=== PATIENT | male | born 1960 | race Caucasian/White ===

== ENCOUNTER 2017-09-21 09:43 | Outpatient (CLI) | payer OTHER | END 2017-09-21 09:54 | disposition home or self-care (01) | LOC: TOM 09:43 | DX: Z85.038 Personal history of other malignant neoplasm of large intestine (principal); D12.5 Benign neoplasm of sigmoid colon; R71.0 Precipitous drop in hematocrit ==

== ENCOUNTER 2018-12-28 14:41 | Outpatient (CLI) | payer OTHER | END 2018-12-28 16:06 | disposition home or self-care (01) | LOC: SONOGRAMA 14:41 | DX: N40.0 Benign prostatic hyperplasia without lower urinary tract symptoms (principal); R31.21 Asymptomatic microscopic hematuria ==

== ENCOUNTER 2019-01-02 09:42 | Outpatient (CLI) | payer OTHER | END 2019-01-02 09:58 | disposition home or self-care (01) | LOC: NUCLEAR 09:42 | DX: I87.2 Venous insufficiency (chronic) (peripheral) (principal) ==

== ENCOUNTER 2020-08-16 09:58 | Outpatient (CLI) | payer OTHER | END 2020-08-16 10:08 | disposition home or self-care (01) | LOC: LAB 09:58 | PROVIDERS: ATTEND Radiology Diagnostic Radiology | DX: Z85.038 Personal history of other malignant neoplasm of large intestine (principal) ==

== ENCOUNTER 2020-08-23 07:32 | Outpatient (CLI) | payer OTHER | END 2020-08-23 07:49 | disposition home or self-care (01) | LOC: SONOGRAMA 07:32 | PROVIDERS: ATTEND Internal Medicine Gastroenterology | DX: Z85.038 Personal history of other malignant neoplasm of large intestine (principal); R97.20 Elevated prostate specific antigen [PSA]; R71.0 Precipitous drop in hematocrit; K59.00 Constipation, unspecified ==

== ENCOUNTER → 2022-03-16 | Outpatient (CLI) | payer OTHER | END | disposition home or self-care (01) | LOC: TOM 08:37 | PROVIDERS: ATTEND Internal Medicine Gastroenterology | DX: Z85.038 Personal history of other malignant neoplasm of large intestine (principal); K63.89 Other specified diseases of intestine ==

== ENCOUNTER 2022-04-10 10:27 | Outpatient (CLI) | payer OTHER | END 2022-04-10 10:30 | disposition home or self-care (01) | LOC: LAB 10:27 | PROVIDERS: ATTEND Radiology Diagnostic Radiology | DX: C18.6 Malignant neoplasm of descending colon (principal) ==

== ENCOUNTER 2022-04-13 07:04 | Outpatient (CLI) | payer OTHER | END 2022-04-13 07:24 | disposition home or self-care (01) | LOC: TOM 07:04 | PROVIDERS: ATTEND Surgery | DX: C18.6 Malignant neoplasm of descending colon (principal); C18.2 Malignant neoplasm of ascending colon; Z85.038 Personal history of other malignant neoplasm of large intestine ==

== ENCOUNTER 2022-04-27 10:31 | Outpatient (CLI) | payer OTHER ==
[2022-04-28] MEDS ORDERED: VASOTEC20 M1 PO (08:49)
[2022-04-28] MEDS ORDERED: DULOXE PO (08:49)
[2022-04-28] MEDS ORDERED: UROXATRAL10 MG PO (08:50)
== END 2022-04-27 10:32 | disposition home or self-care (01) ==
LOC: LAB 10:31
PROVIDERS: ATTEND Internal Medicine Geriatric Medicine
DX: D64.9 Anemia, unspecified (principal)

== ENCOUNTER 2022-04-28 08:15 | Inpatient (IN) | payer OTHER ==
[~2022-04-28] VITALS: Ht 170.2 cm; Wt 127.0 kg
[2022-04-28] MEDS ORDERED: DULOXE PO (08:49)
[2022-04-28] MEDS ORDERED: VASOTEC20 M1 PO (08:49)
[2022-04-28] MEDS ORDERED: UROXATRAL10 MG PO (08:50)
[2022-05-05] MEDS ORDERED: DULOXETINE HCL20 MG PO (13:15)
[2022-05-11] MEDS ORDERED: PERCOCET 5-3251 EACH PO (12:09)
[2022-05-11] MEDS ORDERED: INTESTINEX680 M1 PO (12:10)
[2022-05-11] MEDS ORDERED: PEPCID AC20 MG PO (12:11)
== END 2022-05-11 13:27 | disposition home or self-care (01) | DRG 331 ==
LOC: O/R 05-04 08:14 → SURG 05-04 08:14 → SURH 05-04 08:15 → SURG 05-05 16:44
PROVIDERS: ADMIT Surgery; ATTEND Surgery
PROC: 0DTG4ZZ Resection of Left Large Intestine, Percutaneous Endoscopic Approach (ICD-10-PCS; principal; 2022-05-04 12:45)
PROC: 4A12X4Z Monitoring of Cardiac Electrical Activity, External Approach (ICD-10-PCS; 2022-05-05)
DX: C18.6 Malignant neoplasm of descending colon (principal); R59.0 Localized enlarged lymph nodes; E11.65 Type 2 diabetes mellitus with hyperglycemia; G47.30 Sleep apnea, unspecified; I10 Essential (primary) hypertension; Z79.4 Long term (current) use of insulin; Z85.038 Personal history of other malignant neoplasm of large intestine

== ENCOUNTER 2022-05-26 09:59 | Outpatient (CLI) | payer OTHER ==
[~2022-05-26 09:59] MED LIST: DULOXE PO; DULOXETINE HCL20 MG PO; INTESTINEX680 M1 PO; PEPCID AC20 MG PO; PERCOCET 5-3251 EACH PO; UROXATRAL10 MG PO; VASOTEC20 M1 PO
[2022-05-26] MEDS ORDERED: NIFEDIPINE20 MG PO (10:59)
[2022-05-26] MEDS ORDERED: JANUMET 50-5001 EACH PO (10:59)
== END 2022-05-26 10:00 | disposition home or self-care (01) ==
LOC: LAB 09:59
PROVIDERS: ATTEND Internal Medicine Hematology & Oncology
DX: C18.6 Malignant neoplasm of descending colon (principal)

== ENCOUNTER 2022-05-28 05:49 | Day surgery (SDC) | payer OTHER ==
[~2022-05-28 05:49] MED LIST changes: +JANUMET 50-5001 EACH PO; +NIFEDIPINE20 MG PO
[2022-05-28] MEDS ORDERED: TRAM1TAB98 PO ×2 (12:48→13:11)
== END 2022-05-28 16:00 | disposition home or self-care (01) ==
LOC: CIR.AMB 05:49
PROVIDERS: ATTEND Surgery
DX: C18.6 Malignant neoplasm of descending colon (principal); Z20.822 Contact with and (suspected) exposure to COVID-19; Z88.6 Allergy status to analgesic agent; I10 Essential (primary) hypertension; Z86.16 Personal history of COVID-19; F17.210 Nicotine dependence, cigarettes, uncomplicated

== ENCOUNTER 2022-10-28 09:39 | Outpatient (CLI) | payer OTHER ==
[~2022-10-28 09:39] MED LIST changes: +TRAM1TAB98 PO
== END 2022-10-28 09:41 | disposition home or self-care (01) ==
LOC: LAB 09:39
PROVIDERS: ATTEND Internal Medicine Hematology & Oncology
DX: D50.0 Iron deficiency anemia secondary to blood loss (chronic) (principal); D63.8 Anemia in other chronic diseases classified elsewhere; D63.0 Anemia in neoplastic disease; D50.8 Other iron deficiency anemias

== ENCOUNTER 2022-11-06 19:43 | Emergency (ER) | payer OTHER ==
[~2022-11-06] VITALS: Ht 170.2 cm; Wt 117.9 kg
== END 2022-11-06 21:09 | disposition home or self-care (01) ==
LOC: ER 19:43
DX: R73.9 Hyperglycemia, unspecified (principal); Z88.6 Allergy status to analgesic agent

== ENCOUNTER → 2023-02-03 | Outpatient (CLI) | payer OTHER | END | disposition home or self-care (01) | LOC: NUCLEAR 08:00 | PROVIDERS: ATTEND Internal Medicine Hematology & Oncology | DX: C18.6 Malignant neoplasm of descending colon (principal) ==

== ENCOUNTER 2023-10-25 07:55 | Emergency (ER) | payer OTHER ==
[~2023-10-25] VITALS: Ht 170.2 cm; Wt 123.8 kg
[2023-10-25] MEDS ORDERED: UROXATRAL10 MG (08:05)
[2023-10-25] MEDS ORDERED: TOUJEO SOL300 UNIT/1 SQ (08:05)
[2023-10-25] MEDS ORDERED: GLIPIZIDE XL5 MG (08:05)
[2023-10-25] MEDS ORDERED: HYDROCHLOROTH12.5 M2 PO (08:06)
[2023-10-25] MEDS ORDERED: DILTIAZEM ER300 M2 (08:06)
[2023-10-25] MEDS ORDERED: FLONASE16 GM NS (08:06)
[2023-10-25] MEDS ORDERED: LEVOTHYROXINE25 MCG PO (08:07)
[2023-10-25] MEDS ORDERED: CRESTOR10 MG PO (08:07)
[2023-10-25] MEDS ORDERED: 0.9 % SODIUM CHLORIDE 1,000 ML IV SCH (08:45)
[2023-10-25] MEDS ORDERED: MEPERIDINE HCL/PF 50 MG/ML VIAL IM ONE (08:45)
[2023-10-25 10:30] LABS: HEMATOCRIT 40.3 % (39.0-48.0); HEMOGLOBIN 14.3 g/dL (13-16.00); MEAN CELL VOLUME 86.5 fL (80.0-100.00); MEAN CORPUSCULAR HEMOGLOBIN 30.7 pg (27.00-32.0); MEAN CORPUSCULAR HGB CONC 35.5 g/dl (32.0-36.0); PLATELET COUNT 259 K/uL (150-450); RED BLOOD COUNT 4.66 M/uL (4.00-6.00); RED CELL DISTRIBUTION WIDTH 13.3 % (11.5-14.5)
[2023-10-25 10:39] LABS: CALCIUM 9.5 mg/dL (8.5-10.1); CREATININE SERUM 0.99 mg/dL (0.70-1.30); GFR 76.85; POTASSIUM 3.62 mEq/L (3.5-5.1)
[2023-10-25] MEDS ORDERED: MEPERIDINE HCL 25 MG/ML AMPUL IV ONE (12:00)
[2023-10-25 12:28] LABS: PH,URINE 7.5 (5.0-8.0); URINE APPEARANCE Clear; URINE BILIRRUBIN Negative (NEGATIVE); URINE BLOOD Small; URINE COLOR Yellow; URINE GLUCOSE Negative (NEGATIVE); URINE LEUKOCYTE Trace; URINE NITRATE Negative; URINE PROTEIN 30 (NEGATIVE)
[2023-10-25 12:32] LABS: URINE BACTERIA 12.5 uL (0.0-1933); URINE EPITHELIAL CELLS 5.2 uL (0.0-38.8); URINE RBC 210.2 uL (0.0-20.8); URINE WBC 26.1 uL (0.0-23.2)
== END 2023-10-25 14:17 | disposition home or self-care (01) ==
LOC: ER 07:56
PROVIDERS: Emergency Medicine
DX: R10.9 Unspecified abdominal pain (principal); I10 Essential (primary) hypertension; E03.8 Other specified hypothyroidism; E11.9 Type 2 diabetes mellitus without complications; Z79.4 Long term (current) use of insulin; Z88.6 Allergy status to analgesic agent

== ENCOUNTER 2024-06-26 22:34 | Emergency (ER) | payer OTHER ==
[~2024-06-26] VITALS: Ht 170.2 cm; Wt 129.7 kg
[~2024-06-26 22:34] MED LIST changes: +CRESTOR10 MG PO; +DILTIAZEM ER300 M2; +FLONASE16 GM NS; +GLIPIZIDE XL5 MG; +HYDROCHLOROTH12.5 M2 PO; +LEVOTHYROXINE25 MCG PO; +TOUJEO SOL300 UNIT/1 SQ; +UROXATRAL10 MG
[2024-06-26] MEDS ORDERED: FAMOTIDINE/PF 20 MG in 0.9 % SODIUM CHLORIDE 8 ML IV PUSH STA (23:10)
[2024-06-26] MEDS ORDERED: HYOSCYAMINE SULFATE 0.125 MG TAB.SUBL SL ONE (23:15)
[2024-06-26] MEDS ORDERED: ONDANSETRON HCL 2 MG/ML VIAL IV ONE (23:15)
[2024-06-26] MEDS ORDERED: 0.9 % SODIUM CHLORIDE 1,000 ML IV SCH (23:15)
[2024-06-27 00:11] LABS: HEMATOCRIT 46.9 % (39.0-48.0); HEMOGLOBIN 15.8 g/dL (13-16.00); MEAN CELL VOLUME 87.5 fL (80.0-100.00); MEAN CORPUSCULAR HEMOGLOBIN 29.5 pg (27.00-32.0); MEAN CORPUSCULAR HGB CONC 33.7 g/dl (32.0-36.0); PLATELET COUNT 247 K/uL (150-450); RED BLOOD COUNT 5.37 M/uL (4.00-6.00); RED CELL DISTRIBUTION WIDTH 14.6 % (11.5-14.5)
[2024-06-27 00:36] LABS: ALBUMIN 4.1 gm/dL (3.4-5.0); BILIRUBIN TOTAL 1.13 mg/dL (0.3-1.2); CALCIUM 9.4 mg/dL (8.5-10.1); CREATININE SERUM 1.26 mg/dL (0.70-1.30); GFR 57.99; GLOBULINA 3.9 G/DL (2.4-3.5); POTASSIUM 5.13 mEq/L (3.5-5.1)
== END 2024-06-27 02:27 | disposition home or self-care (01) ==
LOC: ER 22:37
PROVIDERS: General Practice
DX: K52.89 Other specified noninfective gastroenteritis and colitis (principal); R11.2 Nausea with vomiting, unspecified; Z88.8 Allergy status to other drugs, medicaments and biological substances; E11.9 Type 2 diabetes mellitus without complications; Z79.4 Long term (current) use of insulin; Z85.89 Personal history of malignant neoplasm of other organs and systems; I10 Essential (primary) hypertension
CPT/HCPCS: 36415; 96365; 96366; 99282; J2405; J3490; J7030

== ENCOUNTER 2024-12-19 07:47 | Outpatient (CLI) | payer OTHER | END 2024-12-19 07:49 | disposition home or self-care (01) | LOC: MRI 07:47 | DX: K86.2 Cyst of pancreas (principal); C18.9 Malignant neoplasm of colon, unspecified | CPT/HCPCS: 72197; 74183 ==